=== PATIENT | male | born 1950 | race Caucasian/White ===

== ENCOUNTER 2020-04-29 11:35 | Inpatient (IN) | payer MEDICARE, MEDICAID, SELFPAY ==
[2020-04-29] VITALS (19 sets, daily range): BP systolic 104–136; BP diastolic 68–86; PULSE 75–104; RESP 20–31; TEMP 36.1–37.3; O2SAT 86–98; BMI 24.0
--- NOTE | ~2020-04-29 | CT_ITS ---
EXAMINATION: CTA chest PE protocol EXAM DATE: 04/29/2020 15:16 INDICATION: COVID 19. Shortness of breath and elevated d-dimer. TECHNIQUE: Spiral CTA of the chest (pulmonary arteries) was performed with 100 cc Omnipaque 350 intr avenous contrast injection. Images were acquired during the pulmonary arterial phase. Coronal maxi mum intensity projection 3D-reconstructions were created by the technologist on dedicated workstation . Axial, coronal and sagittal reformatted images were reviewed. The dose-length product (DLP) for t his examination was 363.91 mGy-cm. The exposure was tailored according to patient size (auto mA exp osure control), and iterative reconstruction (ASIR) was used as additional dose reduction technique. There is no prior study for comparison. FINDINGS: There are no pulmonary emboli in the 1st through 3rd order (central and interlobar) pulmon angely arteries. Some loss of attenuation in the segmental pulmonary arteries due to respiratory motion , but no intraluminal filling defects suspected. No thoracic aortic dissection. There is severe emphysema. There are scattered regions of peripheral groundglass opacities, mostly al marcel the dependent portions of the right lung. Nonspecific pneumonitis, but could be COVID pneumonia g iven history provided. Some regions of linear scarring. There are no pleural or pericardial effusions . Tracheobronchial tree is patent. There is no mediastinal, hilar or axillary lymphadenopathy. There is no pneumothorax. Heart normal in size. There is moderate coronary arterial calcification , arterial sclerosis. Upper abdomen is unremarkable. There is mild thoracic spondylosis without os teoblastic or osteolytic lesions identified. IMPRESSION: 1. Limited segmental evaluation, but no pulmonary emboli are suspected. 2. Scattered regions of groundglass opacity, nonspecific pneumonitis. Could be COVID pneumonia. 3. Severe emphysema. Reviewed, dictated and finalized at location A. OOM ATTENDANT
--- NOTE | ~2020-04-29 | XR_ITS ---
EXAMINATION: XR chest 1V portable DATE: 04/29/2020 12:31 INDICATION: Shortness of breath. COVID-19 pneumonia. TECHNIQUE: A single frontal view of the chest was obtained. COMPARISON: Chest 2 views 10/31/2007 FINDINGS: There are airspace opacities in right mid and upper lung zones. No pleural effusion or pneu mothorax. The heart size is normal. A calcified right hilar lymph nodes consistent with old granuloma tous disease. IMPRESSION: 1. Airspace opacities in right mid and upper lung zones, consistent with pneumonia. Reviewed, dictated and finalized at location A. TIVE ASSEMBLER IMPRESSION: 1. Airspace opacities in right mid and upper lung zones, consistent with pneumo gio.
--- NOTE | 2020-04-29 11:41 | ECG_ITS ---
Measurements Intervals [place] Rate: 98 P: 79 ND: 172 QRS: 16 QRSD: 148 T: 93 QT: 406 QTc: 518 Interpretive Statements SINUS RHYTHM LEFT BUNDLE BRANCH BLOCK ABNORMAL ECG Electronically Signed On 04-29-2020 15:40:08 CHINESE INSTRUCTOR by Philippe Nichole D.O.
[2020-04-29] MEDS: methylPREDNISolone SOD SUCC 125 MG VIAL IV PUSH (12:28)
[2020-04-29 12:44] LABS: Mean Corpuscular HGB Conc 33.3 g/dL (32.0-36.0); Mean Corpuscular Hemoglobin 30.9 pg (27.0-31.0); Mean Corpuscular Volume 92.6 fL (78.0-102.0); Mean Platelet Volume 9.7 fl (8.7-11.0); Platelet Count Result 202 K/mm3 (150-420); Red Blood Count 4.86 M/mm3 (4.70-6.10); Red Cell Distribution Width 12.9 % (11.6-14.4); White Blood Count 2.1 K/mm3 (4.8-10.8)
[2020-04-29 12:54] LABS: Alanine Aminotransferase 87 U/L (16-63); Albumin Level 3.3 g/dL (3.4-5.0); Alkaline Phosphatase 96 U/L (46-116); Anion Gap 10 mmol/L (8-16); Aspartate Amino Transferase 77 U/L (15-37); Bilirubin,Total 0.5 mg/dL (0.00-1.00); Calcium 8.8 mg/dL (8.5-10.1); Carbon Dioxide 31 mmol/L (21-32); Chloride 95 mmol/L (98-108); Estimated Glomerular Filt Rate 47; Glucose 88 mg/dL (70-99); INR 0.9; Partial Thromboplastin Time 33.1 SEC (23.90-30.70); Potassium 2.9 mmol/L (3.5-5.1); Prothrombin Time 10.4 Seconds (9.50-12.10); Sodium 136 mmol/L (136-145); Total Protein 7.9 g/dL (6.4-8.2); Troponin I 26.3 ng/L (0.00-60.4)
[2020-04-29 13:04] LABS: BNP 30.4 pg/mL (0-100)
[2020-04-29 13:05] LABS: Blood Urea Nitrogen 28 mg/dL (7-18); Osmolality Calculated 286 mOsm/kg (285-295)
--- NOTE | 2020-04-29 13:16 | ED.SOB ---
HPI - SOB/Dyspnea General Chief Complaint: Shortness of Breath/Dyspnea Stated Complaint: 70 YO male, a resident [facility]) w/ known h.o Covid-19 ( positive on 04/25/20) sent into ER by EMS for SOB. Patient is a poor historian and answers no questions (This is baseline for him per [facility]). Related Data Home Medications Medication Instructions Recorded Confirmed acetaminophen 650 mg PO TID 04/29/20 04/29/20 aspirin [Adult Aspirin] 81 mg PO DAILY 04/29/20 04/29/20 donepezil [Aricept] 10 mg PO HS 04/29/20 04/29/20 fluticasone propionate 1 spray INTRANASAL BID 04/29/20 04/29/20 folic acid 2 mg PO DAILY 04/29/20 04/29/20 hydrochlorothiazide 25 mg PO DAILY 04/29/20 04/29/20 lisinopril 5 mg PO DAILY 04/29/20 04/29/20 mecobalamin (vitamin B12) 1,000 mcg PO DAILY 04/29/20 04/29/20 mirtazapine [Remeron] 30 mg PO HS 04/29/20 04/29/20 omeprazole 20 mg PO DAILY 04/29/20 04/29/20 polyethylene glycol 3350 17 g PO BID 04/29/20 04/29/20 pravastatin 40 mg PO HS 04/29/20 04/29/20 tamsulosin 0.4 mg PO DAILY 04/29/20 04/29/20 tiotropium bromide [Spiriva 2 puff INHALATION DAILY 04/29/20 04/29/20 Respimat] venlafaxine [Effexor XR] 37.5 mg PO DAILY 04/29/20 04/29/20 Allergies Allergy/AdvReac Type Severity Reaction Status Date / Time levofloxacin [From Levaquin] Allergy Rash Verified 04/29/20 14:05 Review of Systems Review of Systems: ROS unobtainable: Yes unobtainable due to mental status PMFSH Past Medical History Medical History BPH (benign prostatic hyperplasia) COPD (chronic obstructive pulmonary disease) Dementia Depression GERD (gastroesophageal reflux disease) HLD (hyperlipidemia) HTN (hypertension) Exam Narrative: Exam Narrative: Patient offers no hostory, he only answers his names. 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, talks about random things Const: General: no acute distress HENMT: Head: normal to inspection Face and sinus: normal facial exam Eyes: Conjunctivae: conjunctivae normal Neck: Neck: normal visual inspection Chest: Chest palpation & inspection: normal inspection of the chest Resp: Auscultation: rhonchi and diminished lung sounds Cardio: Rate: regular rate Rhythm: regular rhythm GI: Inspection: non-distended GI Palp: Yes Soft to palpation and No Tenderness to palpation present (GI) Skin: General skin exam: normal color Neuro: General: No patient oriented x3, moves all extremities, no meningeal signs and no focal motor deficits Speech: Abnormal speech present (speaks whatever he wants) garbled Other: Unable to test as patient won't follow direstions Extrem: General: normal to inspection, no clubbing, cyanosis or edema and no pedal edema Course Course Emergency Course: Patient developed Allergic rash to levaquin, drug now listed as allergy and started on Rocephin and Azithromycin. Vital Signs Vital signs: Vital Signs Temperature 99.1 F 04/29/20 11:35 Pulse Rate 99 04/29/20 11:35 Respiratory Rate 24 H 04/29/20 11:35 Blood Pressure 120/85 04/29/20 11:35 Pulse Oximetry 87 L 04/29/20 11:35 Temperature 99.1 F 04/29/20 11:35 Pulse Rate 93 04/29/20 13:01 Respiratory Rate 28 H 04/29/20 13:01 Blood Pressure 116/68 04/29/20 13:01 Pulse Oximetry 94 04/29/20 13:01 MDM - SOB/Dyspnea Lab Data Result diagrams: 04/29/20 12:14 04/29/20 12:14 Labs: Lab Results 04/29/20 04/29/20 04/29/20 Range/Units 12:14 12:14 12:14 WBC 2.1 L (4.8-10.8) K/mm3 RBC 4.86 (4.70-6.10) M/mm3 Hgb 15.0 (12.4-15.3) g/dL Hct 45.0 (37.0-46.0) % MCV 92.6 (78.0-102.0) fL MCH 30.9 (27.0-31.0) pg MCHC 33.3 (32.0-36.0) g/dL RDW 12.9 (11.6-14.4) % Plt Count 202 (150-420) K/mm3 MPV 9.7 (8.7-11.0) fl Immature Gran % (Auto) Not Reportable Neut % (Auto) Not Reportable Lymph % (Auto) Not Reportable [place] % (Auto) Not
[2020-04-29 13:20] LABS: Band Neutrophils Percent 0 % (0-6); Basophils Absolute Manual 0.04 K/mm3 (0-0.1); Basophils Percent Manual 2 % (0-1); Eosinophils Absolute Manual 0.04 K/mm3 (0.02-0.5); Eosinophils Percent Manual 2 % (1-6); Lymphocytes Percent Manual 29 % (18-44); Monocytes Absolute Manual 0.31 K/mm3 (0.1-0.90); Monocytes Percent Manual 15 % (3-9); Neutrophils Absolute Manual 1.09 K/mm3 (1.3-6.7); Neutrophils Percent Manual 52 % (46-73); Total Cells Counted 100
[2020-04-29 13:21] LABS: Platelet Estimate Adequate (Adequate)
[2020-04-29] MEDS: POTASSIUM CHLORIDE 20 MEQ TABLET 40 MEQ PO (13:50)
[2020-04-29 14:11] LABS: Appearance Urine Clear (Clear); Bilirubin Urine 1+ (Negative); Color Urine Yellow (Yellow); Glucose Urine UA Negative (Negative); Ketones Urine 1+ (Negative); Leukocyte Esterase Ur Negative LEU/UL (Negative); Nitrate Urine Negative (Negative); Protein Urine 1+ (Negative); Specific Grav Ur 1.025 (1.010-1.020); Urobilinogen Urine 0.2 mg/dL (0.2-1.0)
--- NOTE | 2020-04-29 14:13 | PC.NURSE ---
1350 RN began Levaquin to #20 L FA. After 5 minutes, RN noticed redness and blistered rash moving up L FA. Levaquin discontinued immediately. IV access removed. ERP made aware. Pt monitored closely.
[2020-04-29 14:18] LABS: Add Urine Microscopic? YES; Bacteria Urine Trace /hpf; Blood Urine Trace (Negative); Squamous Epithelial Cell Urine Rare /hpf (Few); WBC Urine 0-3 /hpf (0-3)
[2020-04-29] MEDS: diphenhydrAMINE HCl INJ 50 MG/ML VIAL (14:25)
[2020-04-29 14:26] LABS: Amphetamine Screen Urine Negative (Negative); Barbiturate Screen Urine Negative (Negative); Benzodiazepines Screen Urine Negative (Negative); Cannabinoid Screen Urine Negative (Negative); Cocaine Screen Urine Negative (Negative); Methadone Screen Urine Negative (Negative); Opiate Screen Urine Negative (Negative); Phencyclidine Screen Urine Negative (Negative)
[2020-04-29] MEDS: ENOXAPARIN 30 MG/0.3 ML SYRINGE SUB-Q (17:56)
[2020-04-29] MEDS: FLUTICASONE PROPIONATE 0.05% NA SPR 16 GM BTL (*BKC) 1 SPRAY NASAL (17:56)
--- NOTE | 2020-04-29 18:03 | PC.NURSE ---
[facility] resident admitted from ER, hard of hearing, not able to understand information given, bed alarm secured, isolation started for covid positive, no cough noted, pulse ox 93% on 3 L NC, azithromycin infusing, site clear, mathew from ED patent and draining to gravity, side rails up and call light in reach
[2020-04-29] MEDS: DONEPEZIL HCL 5 MG TABLET 10 MG PO (20:36)
[2020-04-29] MEDS: PRAVASTATIN SODIUM 20 MG TABLET 40 MG PO (20:36)
[2020-04-30] VITALS: BP 126/73; PULSE 84; RESP 20; O2SAT 93
[2020-04-30 03:25] VITALS: PULSE 88
[2020-04-30] MEDS: PANTOPRAZOLE SOD SESQUIHYDRATE 20 MG TAB PO (05:40)
[2020-04-30 08:00] VITALS: BP 115/69; PULSE 76; PULSE 88; RESP 18; TEMP 36.6; O2SAT 90
[2020-04-30] MEDS: FLUTICASONE PROPIONATE 0.05% NA SPR 16 GM BTL (*BKC) 1 SPRAY NASAL ×2 (08:42→17:02)
[2020-04-30] MEDS: ASPIRIN 81 MG ENTERIC TABLET PO (08:42)
[2020-04-30] MEDS: TAMSULOSIN HCL 0.4 MG CAPSULE PO (08:42)
[2020-04-30] MEDS: lisinopriL 5 MG TABLET PO (08:42)
[2020-04-30] MEDS: hydroCHLOROthiazide 25 MG TABLET PO (08:42)
[2020-04-30] MEDS: FOLIC ACID 1 MG TABLET 2 MG PO (08:43)
[2020-04-30] MEDS: ENOXAPARIN 30 MG/0.3 ML SYRINGE SUB-Q (08:43)
[2020-04-30 09:11] LABS: Hematocrit 45.4 % (37.0-46.0); Hemoglobin 15.1 g/dL (12.4-15.3); Mean Corpuscular HGB Conc 33.3 g/dL (32.0-36.0); Mean Corpuscular Hemoglobin 30.7 pg (27.0-31.0); Mean Corpuscular Volume 92.3 fL (78.0-102.0); Mean Platelet Volume 9.5 fl (8.7-11.0); Platelet Count Result 239 K/mm3 (150-420); Red Blood Count 4.92 M/mm3 (4.70-6.10); Red Cell Distribution Width 12.7 % (11.6-14.4); White Blood Count 3.1 K/mm3 (4.8-10.8)
[2020-04-30] MEDS: ENOXAPARIN 60 MG/0.6 ML SYRINGE SUB-Q (09:11)
[2020-04-30 09:37] LABS: Alanine Aminotransferase 116 U/L (16-63); Albumin Level 3.2 g/dL (3.4-5.0); Alkaline Phosphatase 104 U/L (46-116); Anion Gap 10 mmol/L (8-16); Aspartate Amino Transferase 90 U/L (15-37); Bilirubin,Total 0.6 mg/dL (0.00-1.00); Blood Urea Nitrogen 28 mg/dL (7-18); Calcium 8.9 mg/dL (8.5-10.1); Carbon Dioxide 30 mmol/L (21-32); Chloride 98 mmol/L (98-108); Estimated CRCL calculation 41 ml/min; Estimated Glomerular Filt Rate 51; Glucose 144 mg/dL (70-99); Osmolality Calculated 294 mOsm/kg (285-295); Sodium 138 mmol/L (136-145); Total Protein 7.6 g/dL (6.4-8.2)
[2020-04-30] MEDS: REMDESIVIR 200 MG/NS 250 ML 200 MG/250 ML BAG 250 MG IVPB (10:12)
[2020-04-30 12:00] VITALS: PULSE 106
--- NOTE | 2020-04-30 13:10 | PM.IMHP ---
H&P: HPI History of Present Illness Date/Time: 04/30/20 13:10 Chief Complaint: sob Narrative: Danielito Allen is a 70 year old male that presented to our ED yesterday positive for COVID-19 with shortness of breath. Patient is a poor historian. Patient was only aware of his name when asked his location and year he continuously said his name only. Patient is able to follow minor commands. According to his nursing staff patient talks about random things that they can understand this is normal for him he does have a mental speech and here impairment patient does not appear to be in any distress at this time. He has been admitted for Covid pneumonia Review of Systems Review of Systems: ROS unobtainable: Yes unobtainable due to mental status PMFSH Past Medical History Medical History BPH (benign prostatic hyperplasia) COPD (chronic obstructive pulmonary disease) Dementia Depression GERD (gastroesophageal reflux disease) HLD (hyperlipidemia) HTN (hypertension) Social History Social History Smoking status: Unknown if ever smoked Alcohol intake: unknown Substance use: unknown Gender identity (if verbalized by the patient): Male Spiritual care concerns: No Meds Home Medications and Allergies Home Medications Medication Instructions Recorded Confirmed Type acetaminophen 650 mg PO TID 04/29/20 04/29/20 History aspirin [Adult Aspirin] 81 mg PO DAILY 04/29/20 04/29/20 History donepezil [Aricept] 10 mg PO HS 04/29/20 04/29/20 History fluticasone propionate 1 spray INTRANASAL BID 04/29/20 04/29/20 History folic acid 2 mg PO DAILY 04/29/20 04/29/20 History hydrochlorothiazide 25 mg PO DAILY 04/29/20 04/29/20 History lisinopril 5 mg PO DAILY 04/29/20 04/29/20 History mecobalamin (vitamin B12) 1,000 mcg PO DAILY 04/29/20 04/29/20 History mirtazapine [Remeron] 30 mg PO HS 04/29/20 04/29/20 History omeprazole 20 mg PO DAILY 04/29/20 04/29/20 History polyethylene glycol 3350 17 g PO BID 04/29/20 04/29/20 History pravastatin 40 mg PO HS 04/29/20 04/29/20 History tamsulosin 0.4 mg PO DAILY 04/29/20 04/29/20 History tiotropium bromide [Spiriva 2 puff INHALATION DAILY 04/29/20 04/29/20 History Respimat] venlafaxine [Effexor XR] 37.5 mg PO DAILY 04/29/20 04/29/20 History Allergies Allergy/AdvReac Type Severity Reaction Status Date / Time levofloxacin [From [facility]] Allergy Rash Verified 04/29/20 14:05 Vital Signs Vital Signs - 24 hr 04/29/20 16:00 04/29/20 16:40 04/29/20 19:30 Temperature 97 F L Pulse Rate 100 88 86 Respiratory Rate 29 H 22 H Blood Pressure 136/71 Pulse Oximetry 97 93 04/29/20 23:07 04/30/20 00:00 04/30/20 03:25 Temperature Pulse Rate 75 84 88 Respiratory Rate 20 Blood Pressure 126/73 Pulse Oximetry 93 04/30/20 08:00 Temperature 97.8 F Pulse Rate 76 Respiratory Rate 18 Blood Pressure 115/69 Pulse Oximetry 90 Exam Narrative: Exam Narrative: GENERAL: Cognitively impaired HEAD: normocephalic, atraumatic. EYES: PERRL. Sclera clear/white. Vision is grossly intact. EARS: External ears normal, auditory canals clear and without drainage, TMs normal without perforation. Hearing grossly intact. NOSE: External nose normal with no obvious nasal discharge, nares without redness, no rhinorrhea. THROAT: Mucous membranes moist, posterior pharynx clear. NECK: Neck supple, non-tender without lymphadenopathy, masses or thyromegaly. CARDIOVASCULAR: Regular rate and rhythm without murmurs, gallops, or rubs. RESPIRATORY: Diminished breath sounds GASTROINTESTINAL: Abdomen soft, non-tender, nondistended. Bowel sounds are active. No hepato-splenomegaly, or palpable masses. No guarding. SKIN: warm, intact with no suspicious lesions or rash, good texture and turgor. NEURO: awake, alert to name only. EXTREMITIES: Normal range of motion. No edema. No calf tenderness. Negativ
[2020-04-30 16:00] VITALS: BP 118/64; PULSE 122; RESP 20; TEMP 36.6; O2SAT 89
[2020-04-30] MEDS: ACETAMINOPHEN 325 MG TABLET 650 MG PO (17:33)
[2020-04-30] MEDS: hydrOXYzine HCL 25 MG TABLET 12.5 MG PO (17:33)
--- NOTE | 2020-04-30 18:08 | PC.NURSE ---
notified that patient pulled his mathew cath out. said to monitor I&O.
--- NOTE | 2020-04-30 19:49 | PC.NURSE ---
Patient had wet depends following removal of mathew catheter.
[2020-04-30 19:59] VITALS: PULSE 106
[2020-04-30] MEDS: DONEPEZIL HCL 5 MG TABLET 10 MG PO (23:02)
[2020-04-30] MEDS: PRAVASTATIN SODIUM 20 MG TABLET 40 MG PO (23:02)
[2020-04-30] MEDS: ENOXAPARIN 60 MG/0.6 ML SYRINGE 30 MG SUB-Q (23:03)
[2020-05-01] VITALS: BP 116/69; PULSE 102; PULSE 119; RESP 18; O2SAT 90
[2020-05-01 04:00] VITALS: PULSE 95
--- NOTE | 2020-05-01 04:04 | PC.NURSE ---
Patient alert to self. Seemed to understood when told he was at the hospital. Asked if he would be able to return home-told him as soon as he was better. repositioned in bed. HOB elevated. Will not leave thermometer alone to obtain temp. Removes oxygen. O2 sats have been at 88 to 89% on room air. Able to move and position self in bed. Takes fluids well.
[2020-05-01] MEDS: PANTOPRAZOLE SOD SESQUIHYDRATE 20 MG TAB PO (05:32)
[2020-05-01 05:44] LABS: Hematocrit 43.9 % (37.0-46.0); Hemoglobin 14.9 g/dL (12.4-15.3); Mean Corpuscular HGB Conc 33.9 g/dL (32.0-36.0); Mean Corpuscular Hemoglobin 30.7 pg (27.0-31.0); Mean Corpuscular Volume 90.5 fL (78.0-102.0); Mean Platelet Volume 9.4 fl (8.7-11.0); Platelet Count Result 271 K/mm3 (150-420); Red Blood Count 4.85 M/mm3 (4.70-6.10); Red Cell Distribution Width 12.7 % (11.6-14.4); White Blood Count 3.8 K/mm3 (4.8-10.8)
--- NOTE | 2020-05-01 05:54 | PC.NURSE ---
Patient has removed telemetry electrodes and conducters x6 this shift. Will not leave nasal cannula on. SPO2 at 88 to 89% with room air. telemetry has dropped to sinus rhythm
[2020-05-01 06:14] LABS: Alanine Aminotransferase 121 U/L (16-63); Albumin Level 3.1 g/dL (3.4-5.0); Alkaline Phosphatase 102 U/L (46-116); Anion Gap 8 mmol/L (8-16); Aspartate Amino Transferase 106 U/L (15-37); Bilirubin,Total 0.5 mg/dL (0.00-1.00); Blood Urea Nitrogen 31 mg/dL (7-18); Carbon Dioxide 31 mmol/L (21-32); Chloride 98 mmol/L (98-108); Estimated CRCL calculation 42 ml/min; Estimated Glomerular Filt Rate 53; Glucose 105 mg/dL (70-99); Osmolality Calculated 290 mOsm/kg (285-295); Sodium 137 mmol/L (136-145); Total Protein 7.4 g/dL (6.4-8.2)
[2020-05-01 08:00] VITALS: BP 109/66; PULSE 89; PULSE 94; RESP 24; TEMP 35.6; O2SAT 89
--- NOTE | 2020-05-01 08:51 | PC.NURSE ---
Attempted to use writing board with patient for communication. Asked patient if he is in pain with communication board. Patient looked at sql report writer. Did not respond.
[2020-05-01] MEDS: DEXAMETHASONE 2 MG TABLET 6 MG PO (09:03)
[2020-05-01] MEDS: hydroCHLOROthiazide 25 MG TABLET PO (09:04)
[2020-05-01] MEDS: ENOXAPARIN 60 MG/0.6 ML SYRINGE 30 MG SUB-Q ×2 (09:04→20:53)
[2020-05-01] MEDS: ASPIRIN 81 MG ENTERIC TABLET PO (09:05)
[2020-05-01] MEDS: lisinopriL 5 MG TABLET PO (09:05)
[2020-05-01] MEDS: FOLIC ACID 1 MG TABLET 2 MG PO (09:06)
[2020-05-01] MEDS: polyethylene glycoL 3350 17 GM POWD.PACK PO (09:06)
[2020-05-01] MEDS: REMDESIVIR 100 MG/NS 250 ML 100 MG/250 ML BAG 250 MG IVPB (09:06)
[2020-05-01] MEDS: FLUTICASONE PROPIONATE 0.05% NA SPR 16 GM BTL (*BKC) 1 SPRAY NASAL ×2 (09:06→16:59)
[2020-05-01] MEDS: TAMSULOSIN HCL 0.4 MG CAPSULE PO (09:06)
--- NOTE | 2020-05-01 13:42 | PC.NURSE ---
Telemetry discontinued
--- NOTE | 2020-05-01 14:35 | P.PN_ITS ---
Progress Note: A&P Assessment and Plan (1) Pneumonia: Qualifiers: Laterality: right Lung location: middle lobe of lung Pneumonia type: due to unspecified organism Qualified Code(s): J18.9 - Pneumonia, unspecified organism <Derick De AndaEVA Campuzano - Last Filed: 05/01/20 14:43> Code(s): J18.9 - Pneumonia, unspecified organism <Derick De AndaEVA Campuzano - Last Filed: 05/01/20 14:43> Status: Acute <Derick De AndaEVA Campuzano - Last Filed: 05/01/20 14:43> Assessment and Plan: * Chest x-ray indicatesAirspace opacities in right mid and upper lung zones, consistent with pneumonia. * CTA indicates Scattered regions of groundglass opacity, nonspecific pneumonitis. Could be COVID pneumonia * Continue azithromycin and Rocephin day 1 * Continue oxygen as needed * Continue inhalers Will continue with outline regimen above, monitor patient respiratory status, make changes as needed <EVA Dukes - Last Filed: 05/01/20 14:43> (2) COVID-19 virus infection: Code(s): U07.1 - COVID-19 <Derick EVA Pickett - Last Filed: 05/01/20 14:43> Status: Acute <Derick De AndaEVA Campuzano - Last Filed: 05/01/20 14:43> Assessment and Plan: * Patient diagnosed Covid + 04/25 of quarantine 1225 * Patient started dexamethasone day 1 of 1 remdesivir the day 1 of * Continue Lovenox 30 mg twice daily per protocol * CTA indicates Scattered regions of groundglass opacity, nonspecific pneumonitis. Could be COVID pneumonia documentation shows the patient was on a low-flow nasal cannula throughout the night, room air this morning with SpO2 90% or better, heart rate 70s to 120 otherwise vital signs stable afebrile AST/ALT 106/121, will need to continue monitoring liver enzymes with respect to Remdesivir <VINAY DukesC - Last Filed: 05/01/20 14:43> (3) Acute hypokalemia: Code(s): E87.6 - Hypokalemia <LLOYD DukesN-C - Last Filed: 05/01/20 14:43> Status: Acute <LLOYD DukesN-C - Last Filed: 05/01/20 14:43> Assessment and Plan: * On admission potassium 2.7 currently 4.0., Supplement given potassium this morning 3, 40 mEq given this morning by mouth, will continue to monitor <Derick Hoang APN-C - Last Filed: 05/01/20 14:43> (4) Dementia: Code(s): F03.90 - Unspecified dementia without behavioral disturbance <Derick Hoang WEAPONS DESIGNER-C - Last Filed: 05/01/20 14:43> Status: Acute <Derick Hoang APN-C - Last Filed: 05/01/20 14:43> Assessment and Plan: * Continue Aricept <LLOYD DukesN-C - Last Filed: 05/01/20 14:43> (5) GERD (gastroesophageal reflux disease): Code(s): K21.9 - Gastro-esophageal reflux disease without esophagitis <LLOYD DukesN-C - Last Filed: 05/01/20 14:43> Status: Acute <LLOYD DukesN-C - Last Filed: 05/01/20 14:43> Assessment and Plan: * Protonix started <LLOYD DukesN-C - Last Filed: 05/01/20 14:43> (6) HTN (hypertension): Code(s): I10 - Essential (primary) hypertension <LLOYD DukesN-C - Last Filed: 05/01/20 14:43> Status: Acute <LLOYD DukesN-C - Last Filed: 05/01/20 14:43> Assessment and Plan: * Blood pressure 126/73, stable * Continue lisinopril 5 mg daily and HCTZ * Vital signs as ordered * Will adjust medication as needed no changes needed at this time <LLOYD DukesN-C - Last Filed: 05/01/20 14:43> (7) Depression: Code(s): F32.9 - Major depressive disorder, single episode, unspecified <Derick De Anda
--- NOTE | 2020-05-01 14:35 | WPDPN ---
Progress Note: A&P Assessment and Plan (1) Pneumonia: Qualifiers: Laterality: right Lung location: middle lobe of lung Pneumonia type: due to unspecified organism Qualified Code(s): J18.9 - Pneumonia, unspecified organism <Derick De AndaEVA Campuzano - Last Filed: 05/01/20 14:43> Code(s): J18.9 - Pneumonia, unspecified organism <Derick NeetuEVA Campuzano - Last Filed: 05/01/20 14:43> Status: Acute <Derick De AndaVINAY CampuzanoC - Last Filed: 05/01/20 14:43> Assessment and Plan: Chest x-ray indicatesAirspace opacities in right mid and upper lung zones, consistent with pneumonia. CTA indicates Scattered regions of groundglass opacity, nonspecific pneumonitis. Could be COVID pneumonia Continue azithromycin and Rocephin day 1 Continue oxygen as needed Continue inhalers Will continue with outline regimen above, monitor patient respiratory status, make changes as needed <EVA Dukes - Last Filed: 05/01/20 14:43> (2) COVID-19 virus infection: Code(s): U07.1 - COVID-19 <VINAY DukesC - Last Filed: 05/01/20 14:43> Status: Acute <Derick De AndaEVA Campuzano - Last Filed: 05/01/20 14:43> Assessment and Plan: Patient diagnosed Covid + 04/25 of quarantine 1225 Patient started dexamethasone day 1 of 1 remdesivir the day 1 of 1 Continue Lovenox 30 mg twice daily per protocol CTA indicates Scattered regions of groundglass opacity, nonspecific pneumonitis. Could be COVID pneumonia documentation shows the patient was on a low-flow nasal cannula throughout the night, room air this morning with SpO2 90% or better, heart rate 70s to 120 otherwise vital signs stable afebrile AST/ALT 106/121, will need to continue monitoring liver enzymes with respect to Remdesivir <VINAY DukesC - Last Filed: 05/01/20 14:43> (3) Acute hypokalemia: Code(s): E87.6 - Hypokalemia <EVA Dukes - Last Filed: 05/01/20 14:43> Status: Acute <LLOYD DukesN-C - Last Filed: 05/01/20 14:43> Assessment and Plan: On admission potassium 2.7 currently 4.0., Supplement given potassium this morning 3, 40 mEq given this morning by mouth, will continue to monitor <Derick Hoang APN-C - Last Filed: 05/01/20 14:43> (4) Dementia: Code(s): F03.90 - Unspecified dementia without behavioral disturbance <Derick Hoang NAIL MAKING MACHINE SETTER-C - Last Filed: 05/01/20 14:43> Status: Acute <Derick Hoang APN-C - Last Filed: 05/01/20 14:43> Assessment and Plan: Continue Aricept <LLOYD DukesN-C - Last Filed: 05/01/20 14:43> (5) GERD (gastroesophageal reflux disease): Code(s): K21.9 - Gastro-esophageal reflux disease without esophagitis <LLOYD DukesN-C - Last Filed: 05/01/20 14:43> Status: Acute <LLOYD DukesN-C - Last Filed: 05/01/20 14:43> Assessment and Plan: Protonix started <LLOYD DukesN-C - Last Filed: 05/01/20 14:43> (6) HTN (hypertension): Code(s): I10 - Essential (primary) hypertension <Derick Hoang NAIL MAKING MACHINE SETTER-C - Last Filed: 05/01/20 14:43> Status: Acute <LLOYD DukesN-C - Last Filed: 05/01/20 14:43> Assessment and Plan: Blood pressure 126/73, stable Continue lisinopril 5 mg daily and HCTZ Vital signs as ordered Will adjust medication as needed no changes needed at this time <Derick Hoang APN-C - Last Filed: 05/01/20 14:43> (7) Depression: Code(s): F32.9 - Major depressive disorder, single episode, unspecified <Derick Hoang NAIL MAKING MACHINE SETTER-C - Last Filed: 05/01/20 14:43> Status: Acute <EVA Dukes - Last Filed: 05/01/20 14:43> Assessment and Plan: Continue Remeron <EVA Dukes - Last Filed: 05/01/20 14:43> (8) COPD (chronic obstructive pulmonary disease): Code(s): J44.9 - Chronic obstructive pulmona
[2020-05-01] MEDS: POTASSIUM CHLORIDE 20 MEQ TABLET 40 MEQ PO (14:41)
--- NOTE | 2020-05-01 15:05 | PC.NURSE ---
Patient refuses to leave oxygen on
--- NOTE | 2020-05-01 15:42 | PC.NURSE ---
Patient found wandering in hallway. Sitter placed, patient repeatedly keeps trying to come out of room.
[2020-05-01 16:00] VITALS: BP 120/72; PULSE 90; RESP 20; TEMP 35.9; O2SAT 86
[2020-05-01] MEDS: DONEPEZIL HCL 5 MG TABLET 10 MG PO (20:52)
[2020-05-01] MEDS: PRAVASTATIN SODIUM 20 MG TABLET 40 MG PO (20:52)
--- NOTE | 2020-05-01 21:00 | PC.NURSE ---
Upon assessment and entering pt. room, pt. is standing in corner by velvet mullen, pt. is nonverbal and won't answer any questions, has a blank stare but will follow commands. Pt. asked to go back to bed, pt. walked c steady gait to bed. Pt. given water to drink and covers placed on pt. Explained call light for assistance, but pt. does not acknowledge understanding. Lights turned low, pt. closing eyes to sleep.
[2020-05-02] VITALS: BP 132/55; PULSE 84; RESP 18; TEMP 36.6; O2SAT 89
--- NOTE | 2020-05-02 02:10 | PC.NURSE ---
pt sleeping, no distress noted, belongings within reach
--- NOTE | 2020-05-02 03:20 | PC.NURSE ---
pt was urinating in the trashcan, assisted pt to chair and removed depend that was wet with urine and liquid feces, pt cleaned and assisted back to bed, nasal canula reapplied, belongings within reach
[2020-05-02] MEDS: PANTOPRAZOLE SOD SESQUIHYDRATE 20 MG TAB PO (05:54)
[2020-05-02 06:00] LABS: Hematocrit 42.7 % (37.0-46.0); Hemoglobin 14.3 g/dL (12.4-15.3); Mean Corpuscular HGB Conc 33.5 g/dL (32.0-36.0); Mean Corpuscular Hemoglobin 30.3 pg (27.0-31.0); Mean Corpuscular Volume 90.5 fL (78.0-102.0); Mean Platelet Volume 9.7 fl (8.7-11.0); Platelet Count Result 287 K/mm3 (150-420); Red Blood Count 4.72 M/mm3 (4.70-6.10); Red Cell Distribution Width 12.8 % (11.6-14.4); White Blood Count 3.2 K/mm3 (4.8-10.8)
[2020-05-02 06:12] LABS: Alanine Aminotransferase 92 U/L (16-63); Anion Gap 7 mmol/L (8-16); Blood Urea Nitrogen 33 mg/dL (7-18); Calcium 8.3 mg/dL (8.5-10.1); Carbon Dioxide 28 mmol/L (21-32); Chloride 100 mmol/L (98-108); Estimated CRCL calculation 48 ml/min; Estimated Glomerular Filt Rate > 60; Glucose 123 mg/dL (70-99); Osmolality Calculated 288 mOsm/kg (285-295); Potassium 3.4 mmol/L (3.5-5.1); Sodium 135 mmol/L (136-145)
[2020-05-02 07:55] VITALS: BP 121/71; PULSE 70; RESP 18; TEMP 36.1; O2SAT 85
[2020-05-02 08:00] VITALS: O2SAT 88
[2020-05-02 08:16] LABS: Aspartate Amino Transferase 60 U/L (15-37)
[2020-05-02] MEDS: ENOXAPARIN 60 MG/0.6 ML SYRINGE 30 MG SUB-Q (09:31)
[2020-05-02] MEDS: TAMSULOSIN HCL 0.4 MG CAPSULE PO (09:32)
[2020-05-02] MEDS: hydroCHLOROthiazide 25 MG TABLET PO (09:32)
[2020-05-02] MEDS: ASPIRIN 81 MG ENTERIC TABLET PO (09:32)
[2020-05-02] MEDS: FOLIC ACID 1 MG TABLET 2 MG PO (09:32)
[2020-05-02] MEDS: DEXAMETHASONE 2 MG TABLET 6 MG PO (09:32)
[2020-05-02] MEDS: lisinopriL 5 MG TABLET PO (09:33)
[2020-05-02] MEDS: FLUTICASONE PROPIONATE 0.05% NA SPR 16 GM BTL (*BKC) 1 SPRAY NASAL (09:33)
[2020-05-02] MEDS: POTASSIUM CHLORIDE 20 MEQ TABLET 40 MEQ PO (09:34)
[2020-05-02] MEDS: REMDESIVIR 100 MG/NS 250 ML 100 MG/250 ML BAG 250 MG IVPB (10:05)
[2020-05-02 10:20] VITALS: O2SAT 89
--- NOTE | 2020-05-02 12:07 | P.DS_ITS ---
DS: Admitting Diagnosis Admitting Diagnosis Admitting Diagnosis: dyspnea covid DS: Discharge Diagnosis Discharge Diagnosis (1) Pneumonia: Qualifiers: Laterality: right Lung location: middle lobe of lung Pneumonia type: due to unspecified organism Qualified Code(s): J18.9 - Pneumonia, unspecified organism Code(s): J18.9 - Pneumonia, unspecified organism Status: Acute Assessment and Plan: * Chest x-ray indicatesAirspace opacities in right mid and upper lung zones, consistent with pneumonia. * CTA indicates Scattered regions of groundglass opacity, nonspecific pneumonitis. Could be COVID pneumonia * Patient will discharge home with azithromycin * Continue inhalers (2) COVID-19 virus infection: Code(s): U07.1 - COVID-19 Status: Acute Assessment and Plan: * Patient diagnosed Covid + 04/25 of quarantine 1227 * Patient started dexamethasone day 2 of 1 remdesivir the day 1 of 2, patient was discharged home with dexamethasone * CTA indicates Scattered regions of groundglass opacity, nonspecific pneumonitis. Could be COVID pneumonia (3) Acute hypokalemia: Code(s): E87.6 - Hypokalemia Status: Acute Assessment and Plan: * On admission potassium 2.7 currently 3.4 * Patient will go home with 4 days of potassium supplements and recheck once he gets off quarantine (4) Dementia: Code(s): F03.90 - Unspecified dementia without behavioral disturbance Status: Acute Assessment and Plan: * Continue Aricept (5) GERD (gastroesophageal reflux disease): Code(s): K21.9 - Gastro-esophageal reflux disease without esophagitis Status: Acute Assessment and Plan: * Protonix (6) HTN (hypertension): Code(s): I10 - Essential (primary) hypertension Status: Acute Assessment and Plan: * Blood pressure stable * Continue lisinopril 5 mg daily and HCTZ * (7) Depression: Code(s): F32.9 - Major depressive disorder, single episode, unspecified Status: Acute Assessment and Plan: * Continue Remeron (8) COPD (chronic obstructive pulmonary disease): Code(s): J44.9 - Chronic obstructive pulmonary disease, unspecified Status: Acute Assessment and Plan: * Continue inhalers and supplementary oxygen (9) BPH (benign prostatic hyperplasia): Code(s): N40.0 - Benign prostatic hyperplasia without lower urinary tract symptoms Status: Acute Assessment and Plan: * Continue Flomax (10) HLD (hyperlipidemia): Code(s): E78.5 - Hyperlipidemia, unspecified Status: Acute Assessment and Plan: * Continue statin (11) Elevated d-dimer: Code(s): R79.89 - Other specified abnormal findings of blood chemistry Status: Acute Assessment and Plan: * D-dimer elevated * Possibly elevated due to Covid * CTA negative for PE * Troponin negative DS: Summary Hospital Course Reason for hospitalization: Shortness of breath Covid positive Hospital Course: This is a 70-year-old white male who resides in [facility]. Patient is a poor historian according to the notes patient started experiencing shortness of breath and was transported to our ED via EMS. Patient is nonverbal with cognitive deficiency. this day patient did test positive for Covid and chest x-ray indicate Covid pneumonia he received remdesivir x2 days and dexamethasone to 2/10. He will discharged home with dexamethasone. Patient did require oxygen use while hospitalized on 2 L nasal cannula pa
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
--- NOTE | 2020-05-02 16:08 | PC.NURSE ---
Discharge to senior care care via ambulance, personal items and discharge instructions sent with patient
--- NOTE | 2020-05-17 12:23 | PC.NURSE ---
Unable to contact for discharge call back.
== END 2020-05-02 16:08 | disposition home or self-care (01) | DRG 177 ==
LOC: CHSED 15:41 → CHS2ND 04-30 07:51
PROVIDERS: Nurse Practitioner; Nurse Practitioner Family; Admitting Provider Family Medicine; Emergency Provider Family Medicine; Visit Provider Family Medicine
DX: U07.1 COVID-19 (principal); J12.89 Other viral pneumonia; E87.6 Hypokalemia; N40.0 Benign prostatic hyperplasia without lower urinary tract symptoms; J44.9 Chronic obstructive pulmonary disease, unspecified; F03.90 Unspecified dementia, unspecified severity, without behavioral disturbance, psychotic disturbance, mood disturbance, and anxiety; F32.9 Major depressive disorder, single episode, unspecified; K21.9 Gastro-esophageal reflux disease without esophagitis; E78.5 Hyperlipidemia, unspecified; I10 Essential (primary) hypertension; R79.89 Other specified abnormal findings of blood chemistry; F09 Unspecified mental disorder due to known physiological condition; E87.5 Hyperkalemia; Z79.899 Other long term (current) drug therapy
CPT/HCPCS: 36415; 36600; 71045; 71275; 80048; 80053; 80307; 81001; 82805; 83880; 84450; 84460; 84484; 85025; 85027; 85380; 85610; 85730; 87040; 93005; 96365; 96367; 96372; 96375; 99285; A9270; J0456; J0696; J1200; J1650; J2930; J8540; Q9965; Q9967